=== PATIENT | female | born 1995 | race Caucasian/White ===

== ENCOUNTER 2020-12-20 20:27 | Emergency (ER) | payer OTHER, BC ==
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
[2020-12-20] MEDS ORDERED: Ibuprofen 800 MG Tab PO STA (21:49)
[2020-12-20] MEDS ORDERED: Acetaminophen 500 MG Tab PO STA (21:49)
[2020-12-20] MEDS ORDERED: Cyclobenzaprine 10 MG Tab PO STA (21:49)
== END 2020-12-20 22:00 | disposition home or self-care (01) ==
LOC: FB.ED 20:27
DX: S09.90XA Unspecified injury of head, initial encounter (principal); S16.1XXA Strain of muscle, fascia and tendon at neck level, initial encounter; Z88.1 Allergy status to other antibiotic agents; V43.52XA Car driver injured in collision with other type car in traffic accident, initial encounter
CPT/HCPCS: 70450; 72125; 99283; 99284; A9270